=== PATIENT | male | born 1955 | race Caucasian/White ===

== ENCOUNTER 2022-07-19 10:27 | Outpatient (REF) | payer MEDICARE, OTHER, SELFPAY ==
--- NOTE | ~2022-07-19 | US_ITS ---
EXAMINATION: US COMPLETE ABDOMEN WITH LIVER ELASTOGRAPHY CLINICAL INFORMATION: COMPARISON: None. TECHNIQUE: Real-time imaging of the abdominal viscera. Noninvasive ultrasound liver fibrosis assessment is performed using Cassandra ElastPQ point quantification shear wave elastography (2D-SWE) with a C5-2 MHz transducer. Multiple elastography samples are obtained. FINDINGS: PANCREAS: Normal. ABDOMINAL AORTA: Not well visualized due to bowel gas. There is evidence of atherosclerotic disease. INFERIOR VENA CAVA: Visualized portions are normal. LIVER: Liver echotexture is slightly increased. Liver is normal in size and shape.. No focal lesion or intrahepatic biliary duct dilatation. The right lobe measures 17 cm in length. The left lobe measures 10.5 cm in length. Portal flow is normal/hepatopedal Shear wave liver elastography median stiffness is 1.5 m/s (reference: normal median stiffness is 1.3 m/s or less). IQR/median stiffness to assess sampling precision is 0.09 (reference: good quality data set is IQR/median stiffness of 0.15 or less). GALLBLADDER: There are gallstones. The gallbladder is normal in size. The gallbladder wall is normal. COMMON BILE DUCT: Normal in caliber measuring 0.5 cm in diameter. RIGHT KIDNEY: There are 3 small cysts, largest measuring 1 cm in the upper pole. No hydronephrosis. No renal calculi or focal parenchymal lesions. The kidney measures 11 cm in maximum dimension. LEFT KIDNEY: There are 3 small cysts, largest measuring 1.3 cm in the upper pole. No hydronephrosis. No renal calculi or focal parenchymal lesions. The kidney measures 11 cm in maximum dimension. SPLEEN: Normal. The spleen measures 12.5 cm in maximum dimension. FREE FLUID: None. US/US abdomen comp w elastography IMPRESSION: 1. Impression Slightly echogenic liver. Gallstones. Bilateral renal cysts. Atherosclerotic disease. 2. Liver elastography: Adequate liver sampling. In the absence of other known clinical signs, rules out compensated advanced chronic liver disease. REFERENCE: Society of Radiologists in Ultrasound Liver Stiffness Thresholds (2020): LIVER STIFFNESS THRESHOLDS: *Liver Stiffness equal or less than 1.3 m/s: High probability of being normal. *Liver Stiffness less than 1.7 m/s: In the absence of other known clinical signs, rules out compensated advanced chronic liver disease. *Liver Stiffness 1.7-2.1 m/s: Suggestive of compensated advanced chronic liver disease but need further test for confirmation. *Liver Stiffness over 2.1 m/s: Rules in compensated advanced chronic liver disease. *Liver Stiffness over 2.4 m/s: Suggestive of clinically significant portal hypertension. QUALITY OF DATA SET: *IQR/Median value equal or less than 0.15 implies a quality data set. *IQR/Median value over 0.15 implies a poor quality data set. SIGNIFICANT CHANGE FROM PRIOR EXAM: Significant change if liver stiffness measurement is 10% or greater from prior exam. OTHER CONSIDERATIONS: The stage of liver fibrosis may be overestimated in the setting of acute hepatitis, liver inflammation, elevated liver function tests, hepatic vascular congestion, obstructive cholestasis, non-fasting state, and infiltrative diseases such as amyloidosis and lymphoma. In some patients with NAFLD, the liver stiffness thresholds for compensated advanced chronic liver disease may be lower. In causes other than viral hepatitis and NAFLD, liver stiffness thresholds are not well established.
== END 2022-07-19 10:28 | disposition home or self-care (01) ==
LOC: HO.US 10:27
PROVIDERS: PCP Internal Medicine Geriatric Medicine; Visit Provider Internal Medicine Geriatric Medicine
DX: B18.2 Chronic viral hepatitis C (principal)
CPT/HCPCS: 76705; 76981

== ENCOUNTER 2023-05-07 09:50 | Outpatient (REF) | payer MEDICARE, OTHER, SELFPAY ==
[2023-05-07 12:12] LABS: Alanine Aminotransferase 8 U/L (0-40); Albumin Level 4.4 g/dL (3.5-5.0); Alkaline Phosphatase 80 U/L (39-117); Aspartate Amino Transferase 16 U/L (5-37); Bilirubin Direct 0.2 mg/dL (0.0-0.5); Bilirubin Total 0.8 mg/dL (0.0-1.0); Total Protein 7.5 g/dL (6.5-8.0)
[2023-05-09 12:19] LABS: HCV Log PCR <1.18 NOT DETECTED Log IU/mL (NOT DETECTED); HepC Viral Load <15 NOT DETECTED IU/mL (NOT DETECTED)
== END 2023-05-07 09:51 | disposition home or self-care (01) ==
LOC: HO.HHCL 09:50
PROVIDERS: PCP Internal Medicine Geriatric Medicine; Visit Provider Family Medicine
DX: B18.2 Chronic viral hepatitis C (principal)
CPT/HCPCS: 36415; 80076; 87522

== ENCOUNTER 2023-12-13 19:53 | Inpatient (IN) | payer MEDICARE, SELFPAY ==
--- NOTE | 2023-12-13 | ECG_ITS ---
Test Reason : CHEST PAIN Blood Pressure : / mmHG Vent. Rate : 100 BPM Atrial Rate : 100 BPM P-R Int : 160 ms QRS Dur : 094 ms QT Int : 362 ms P-R-T Axes : 079 029 076 degrees QTc Int : 466 ms Normal sinus rhythm Normal ECG When compared with ECG of 12-MAR-2013 00:33, No significant change was found Referred By: Generic ED Physician Electronically Signed By:CRISPIN MIGUEL
--- NOTE | ~2023-12-13 | CT_ITS ---
EXAMINATION: CT HEAD WITHOUT CONTRAST CLINICAL INFORMATION: Trauma. Head injury. COMPARISON: None available. TECHNIQUE: Contiguous axial imaging was performed from the skull base to vertex without intravenous administration of contrast. This CT examination was performed using dose optimization techniques as appropriate, variously including the following: *Automated exposure control *Adjustment of mA and/or kV according to patient size (this includes techniques or standardized protocols for targeted exams where dose is matched to indication/reason for exam; i.e. extremities or head) *Use of iterative reconstruction technique DLP: 766 mGy-cm FINDINGS: There is no evidence of an extra-axial collection. There is no evidence of intra or extra-axial hemorrhage. The ventricles and extra-axial CSF spaces are slightly prominent. There is nonspecific periventricular white matter disease. No mass, mass effect or infarct is seen. There is question of an ACOM aneurysm measuring 4 mm. This is probably similar to previous brain MRI from 2012 and 2013. Review of bone windows is normal. No skull fracture. Right-sided barbara bullosa. Inflammatory change in the left ethmoid and frontal and sphenoid sinuses. CT/CT head/brain wo IV con IMPRESSION: No acute findings. Mild generalized atrophy and nonspecific periventricular white matter disease. Question 4 mm ACOM aneurysm. Follow-up elective CTA recommended. Mild sinus disease.
--- NOTE | ~2023-12-13 | XR_ITS ---
EXAMINATION: PORTABLE CHEST 1 VIEW CLINICAL INFORMATION: low O2sats after overdose. COMPARISON: No recent pertinent prior studies are available for comparison. TECHNIQUE: Portable frontal view of the chest was obtained. FINDINGS: The lungs are well expanded. No focal infiltrate, effusion, edema, or pneumothorax. Cardiac and mediastinal silhouettes are within normal limits for size with vascular calcification in aorta. Degenerative changes in the spine and shoulders. No acute bony abnormality seen. XR/XR chest 1V IMPRESSION: No evidence of acute disease.
--- NOTE | ~2023-12-13 | CT_ITS ---
EXAMINATION: CT ANGIOGRAM OF THE CHEST WITH AND WITHOUT CONTRAST (CT PULMONARY ANGIOGRAM FOR PE) CLINICAL INFORMATION: Reason for Exam pleuritic pain, low O2 sats, elevated D-dimer COMPARISON: None available. TECHNIQUE: Prior to contrast administration, noncontrast localization images were obtained. Subsequently, multidetector volumetric imaging was performed from the thoracic inlet to below the diaphragms following the administration of 65 mL Omnipaque 350 intravenous contrast. No contrast reaction reported Sagittal, coronal, and MIP oblique sagittal reformatted images were obtained on the CT workstation, uploaded to PACS, and reviewed. This CT examination was performed using dose optimization techniques as appropriate, variously including the following: *Automated exposure control *Adjustment of mA and/or kV according to patient size (this includes techniques or standardized protocols for targeted exams where dose is matched to indication/reason for exam; i.e. extremities or head) *Use of iterative reconstruction technique Total exam dose-length product 315 mGy-cm FINDINGS: QUALITY OF STUDY/CONTRAST BOLUS: Satisfactory. PULMONARY ARTERIES: There are 2 small eccentric filling defects in the lateral subsegmental right middle lobe vasculature, suspicious small pulmonary emboli on images [id number]. THORACIC AORTA: Prominent ascending aorta to approximately 4.0 cm. There is atherosclerotic calcification along the aorta. LUNG: Mild interlobular septal thickening towards the lung apices as well as mild groundglass/hazy parenchymal opacity towards the dependent portions of both lungs, suggesting mild pulmonary edema. Subsegmental atelectasis in the basilar lower lobes. PLEURA: No pleural effusion or pneumothorax. MEDIASTINUM: The visualized thyroid gland is unremarkable. There are subcentimeter mediastinal lymph nodes within the range of normal variation. Cardiac size is within normal limits; no pericardial effusion. No evidence of septal bowing or right heart strain. CORONARY ARTERY CALCIFICATION: Present CHEST WALL/AXILLA: No axillary or internal mammary lymphadenopathy. OSSEOUS STRUCTURES: Multilevel degenerative endplate changes in the spine. UPPER ABDOMEN: Small bilateral hypoattenuating renal foci favor cysts; no follow-up recommended. No reflux of contrast into the hepatic veins to suggest elevated right heart pressures. CT/CT angio chest PE protocol IMPRESSION: 1. Two small eccentric filling defects in the lateral subsegmental right middle lobe vasculature, suspicious for small pulmonary emboli. 2. Mild pulmonary edema. 3. Prominent ascending aorta measuring approximately 4.0 in diameter. 4. Coronary artery calcifications. Correlation with cardiac risk factors is recommended. VTE: positive. This critical result was discussed with Dr. Tan on 12/14/2023 1:55 AM, and it was ascertained that the content and urgency of the report was understood at the time of direct communication.
[2023-12-13 20:02] VITALS: BP 127/61; BP 134/70; PULSE 104; PULSE 110; RESP 18; TEMP 36.6; O2SAT 89; O2SAT 94; BMI 23.3
[2023-12-13 20:11] VITALS: BP 127/71; PULSE 100; RESP 18; TEMP 36.6; O2SAT 95
--- NOTE | 2023-12-13 20:18 | PC.NURSE ---
Pt presents to ED via EMS. EMS reports friend called after pt became unresponsive after smoking heroin. Pt fell to floor and hit his head per friend. Fire gave 12 mg of narcan IN and ventilated with BVM due to being unresponsive and apneic. Pt became alert and oriented for EMS, EMS placed pt in c-collar due to fall and bruising on left side of face. IV placed in right AC 18G by EMS. EMS also placed pt on 2 L O2 via NC due to sats being in the 80s.
--- NOTE | 2023-12-13 20:20 | PC.NURSE ---
Pt is alert and oriented, breathing even and unlabored, skin dry and warm. Pt reports pain across his chest when he breathes, sharp, 7/10. Pt denies any SOB , but noted to be 88% on RA, pt placed on 2L O2 NC and improves quickly to 95%. VSS, pt placed on bedside monitor technician. C-collar in place. Pt does have one episode of vomiting.
--- NOTE | 2023-12-13 21:12 | ECG_ITS ---
Test Reason : RISING TROP Blood Pressure : / mmHG Vent. Rate : 077 BPM Atrial Rate : 077 BPM P-R Int : 148 ms QRS Dur : 084 ms QT Int : 372 ms P-R-T Axes : 077 006 053 degrees QTc Int : 420 ms Normal sinus rhythm with sinus arrhythmia Normal ECG When compared with ECG of 13-DEC-2023 20:33, QT has shortened Referred By: Dwight Alfaro Electronically Signed By:CRISPIN MIGUEL
[2023-12-13 21:38] LABS: MANUAL DIFF FLAG NO
[2023-12-13 21:41] LABS: Basophils Absolute Auto 0.1 X10*3/uL (0.0-0.2); Basophils Percent Auto 0.4 % (0-2); Eosinophils Absolute Auto 0.2 X10*3/uL (0.0-0.4); Imm Gran Abs Auto 0.07 X10*3/uL (0.00-0.03); Imm Gran Pct Auto 0.4 % (0.0-0.4); Lymphocytes Absolute Auto 0.8 X10*3/uL (1.2-4.9); Lymphocytes Percent Auto 4.7 % (20-40); Mean Corpuscular HGB Conc 34.9 g/dl (31.0-36.0); Mean Corpuscular Hemoglobin 33.1 pg (27.0-33.0); Mean Corpuscular Volume 94.9 fL (80.0-98.0); Mean Platelet Volume 9.2 fL (9.4-12.4); Monocytes Absolute Auto 0.8 X10*3/uL (0.1-1.2); Monocytes Percent Auto 4.4 % (2-11); Neutrophils Absolute Auto 15.3 x10*3/uL (2.0-8.3); Neutrophils Percent Auto 89.1 % (45-73); Platelet Count 224 X10*3/uL (160-400); Red Blood Count 4.53 X10*6/uL (4.60-5.80); Red Cell Distribution Width 12.7 % (11.0-16.0); White Blood Count 17.2 X10*3/uL (4.8-10.8)
[2023-12-13 21:42] LABS: VBG Base Excess 2.3 mmol/L; VBG HCO3 27 mmol/L (22-26); VBG pCO2 45 mmHg; VBG pH 7.39 (7.32-7.43); VBG pO2 48 mmHg
[2023-12-13 21:42] LABS: Venous Blood Gas Refer to POC result
[2023-12-13 21:50] LABS: INTERNATIONAL NORM RATIO 0.9 (0.9-1.1); Prothrombin Time 11.1 SEC (11.1-13.3)
[2023-12-13 21:57] LABS: Alanine Aminotransferase 16 U/L (0-40); Albumin Level 4.1 g/dL (3.5-5.0); Alkaline Phosphatase 77 U/L (39-117); Anion Gap 9 (12-20); Aspartate Amino Transferase 24 U/L (5-37); Bilirubin Direct 0.2 mg/dL (0.0-0.5); Bilirubin Total 0.4 mg/dL (0.0-1.0); Blood Urea Nitrogen 21 mg/dL (9-16); Calcium 9.3 mg/dL (8.4-10.2); Carbon Dioxide 30 mmol/L (22-29); Chloride 108 mmol/L (96-108); Creatinine Clr Calc Pharmacy 78.1; Estimated Glomerular Filt Rate > 60; Ethanol < 10 mg/dL; Glucose Random 113 mg/dL (60-115); Lipase 28 U/L (8-78); Magnesium 2.2 mg/dL (1.6-2.6); Potassium 4.3 mmol/L (3.3-5.1); Sodium 143 mmol/L (135-145); Total Protein 6.9 g/dL (6.5-8.0)
[2023-12-13 22:02] LABS: Troponin-I High Sensitivity 19.4 ng/L (<3.5-35.0)
--- NOTE | 2023-12-13 22:40 | ED.GENADULT ---
HPI - General Adult General Chief complaint: Overdose Stated complaint: overdosed, head strike, 12 mg given, per ems Time Seen by Provider: 12/13/23 20:33 History of Present Illness HPI narrative: The patient is an ordinarily healthy 68-year-old who says that he was helping his partner, who has cancer, control her pain by lighting up a heroin pipe tonight. He apparently that up the heroin pipe and inhaled a few times and then does not remember what happened next. Apparently he passed out and fell and hit the floor. Apparently the patient was unresponsive. 911 was called. Paramedics administered 12 mg of naloxone and ventilated the patient with a bag-valve mask. I believe he also received some chest compressions. He woke up after the naloxone. He denies any headache. He may have some slight left-sided facial discomfort. He denies any neck pain or pain with moving his neck. He says he has never used heroin before. Related Data Allergies Allergy/AdvReac Type Severity Reaction Status Date / Time No Known Allergies Allergy Unverified 12/13/23 20:06 Review of Systems Review of Systems: Yes all other systems are reviewed and are negative [facility] Social History Social History Smoked in Last 30 Days: Yes Use of substances other than those prescribed or required for medical reasons: Yes Substance Use Type: Heroin Substance Use Frequency: Daily Advance Directives: No Advance Directives Information Provided: No Physical Exam ED Vital Signs: Vital Signs - 24 hr 12/13/23 20:02 12/13/23 20:11 12/13/23 23:41 Temperature 97.8 F 97.8 F Pulse Rate 104 H 100 85 Pulse Rate [Monitor] Respiratory Rate 18 18 16 Blood Pressure 127/61 127/71 Pulse Oximetry 89 L 95 Oxygen Delivery Method Room Air Nasal Cannula Oxygen Flow Rate 2 12/13/23 23:54 12/14/23 00:00 12/14/23 03:13 Temperature 98.3 F 97.8 F Pulse Rate 84 91 Pulse Rate [Monitor] 62 Respiratory Rate 20 12 Blood Pressure 127/62 112/64 Pulse Oximetry 93 92 Oxygen Delivery Method Room Air Nasal Cannula Oxygen Flow Rate 2 BMI result Body Mass Index 23.3 Const Other: The patient is a slim 68-year-old who looks fairly useful for his age. He does not appear in acute distress although he is some ecchymotic discoloration to the left side of his face without significant associated soft tissue swelling HENMT Other: There are ecchymotic skin changes to the left side of the face. This is not associated with any significant soft tissue swelling. He is good excursion of his jaw. No raccoon eyes. No henson sign. Eyes Other: Pupils are round equal, conjunctivae clear, extraocular movements intact Neck Other: No posterior midline C-spine tenderness. He is moving his neck easily without discomfort. His C-spine is clinically clear. Resp Other: The patient had low oxygen saturations and has been placed on nasal cannula. On nasal cannula he did not show any increased work of breathing. Breath sounds are clear bilaterally. Cardio Rate: tachycardic Rhythm: regular rhythm Heart sounds: S1 normal heart sound present and S2 normal heart sound present GI Other: Abdomen is soft and nontender Skin Other: There are some ecchymotic skin changes to the patient's left cheek without soft tissue swelling. Otherwise the skin is unremarkable Neuro Other: The patient is awake and alert and oriented. Mental status seems clear. Cranial nerves are intact. He moves his extremities symmetrically. He seems grossly neurologically intact. Extrem Other: No injuries to the extremities Medications Administered Discontinued Medications Generic Name Dose Route Start Last Admin Trade Name Freq PRN Reason Stop Dose Admin Albuterol/Ipratropium 3 ml 12/13/23 22:43 12/13/23 23:41 Albuterol/Iprat 2.5/0.5mg 3 Ml Ampul.Neb INHALE 12/13/23 22:44 3 ml ONCE ONE Administration Iohexol 65 ml 12/14/23 01:30 12/14/23 01:31 Iohexol 350 Mg/Ml 100 Ml Infus..Btl IV 12/14/23 01:31 65 ml ONCE ONE Administration Medical Decision Making Medical Decision Making MDM Narrative: The patient is a 68-year-old male who apparently passed out after smoking heroin. Apparently he received some chest compressions and bag-valve mask ventilation as well as 12 mg of naloxone. The patient denies being a regular heroin user. In fact he says he is never used before. He admits to being a half a pack a day smoker. In the emergency room the patient's presentation was most significant for an oxygen requirement. His oxygen saturation on room air was in the mid 80s. However he did well on 2 L nasal cannula. The patient's chest x-ray was read as negative. He had a mildly rising troponin level. He had 2 EKGs that are normal. He has not describing symptoms that make me think he is having an ongoing acute coronary syndrome. A D-dimer was done that was very elevated and so we did a CT pulmonary angiogram. The CT pulmonary angiogram shows 2 small filling defects suspicious for pulmonary emboli but more importantly I think shows findings of pulmonary edema that I suspect is non cardiogenic pulmonary edema as a result of his overdose. Given the presence of noncardiogenic pulmonary edema and given an ongoing oxygen requirement and given a rising troponin level I think hospitalization would be reasonable. His CT pulmonary angiogram has been read as showing 2 small pulmonary emboli. The clinical significance of this finding is uncertain. Nevertheless the patient will be given a dose of enoxaparin in the emergency room. Lab Data 12/13/23 21:31 12/13/23 21:31 Labs: Lab Results 12/13/23 12/13/23 12/13/23 Range/Units 21:31 21:37 23:28 WBC 17.2 H (4.8-10.8) X10*3/uL RBC 4.53 L (4.60-5.80) X10*6/uL Hgb 15.0 (14.0-18.0) g/dl Hct 43.0 (42.0-52.0) % MCV 94.9 (80.0-98.0) fL MCH 33.1 H (27.0-33.0) pg MCHC 34.9 (31.0-36.0) g/dl RDW 12.7 (11.0-16.0) % Plt Count 224 (160-400) X10*3/uL MPV 9.2 L (9.4-12.4) fL Immature Gran % (Auto) 0.4 (0.0-0.4) % Neut % (Auto) 89.1 H (45-73) % Lymph % (Auto) 4.7 L (20-40) % [place] % (Auto) 4.4 (2-11) % Eos % (Auto) 1.0 (0-4) % Baso % (Auto) 0.4 (0-2) % Lymph # (Auto) 0.8 L (1.2-4.9) X10*3/uL [place] # (Auto) 0.8 (0.1-1.2) X10*3/uL Eos # (Auto) 0.2 (0.0-0.4) X10*3/uL Baso # (Auto) 0.1 (0.0-0.2) X10*3/uL Abs Immat Gran (auto) 0.07 H (0.00-0.03) X10*3/uL Absolute Neuts (auto) 15.3 H (2.0-8.3) x10*3/uL Absolute Nucleated RBC 0.000 (0.0-0.012) X10*3/uL Nucleated RBC % (auto) 0.0 (0.0-0.2) /100WBC PT 11.1 (11.1-13.3) SEC INR 0.9 (0.9-1.1) D-Dimer High Sensitivty 4531 NG/ML VBG pH 7.39 (7.32-7.43) VBG pCO2 45 mmHg VBG pO2 48 mmHg VBG HCO3 27 H (22-26) mmol/L VBG O2 Saturation 79.0 % VBG Base Excess 2.3 mmol/L Sodium 143 (135-145) mmol/L Potassium 4.3 (3.3-5.1) mmol/L Chloride 108 (96-108) mmol/L Carbon Dioxide 30 H (22-29) mmol/L Anion Gap 9 L (12-20) BUN 21 H (9-16) mg/dL Creatinine 0.95 (0.5-1.4) mg/dL Estim Creat Clear Calc 78.1 Estimated GFR > 60 Random Glucose 113 (60-115) mg/dL Calcium 9.3 (8.4-10.2) mg/dL Magnesium 2.2 (1.6-2.6) mg/dL Total Bilirubin 0.4 (0.0-1.0) mg/dL Direct Bilirubin 0.2 (0.0-0.5) mg/dL AST 24 (5-37) U/L ALT 16 (0-40) U/L Alkaline Phosphatase 77 (39-117) U/L Troponin I High Sens 19.4 (<3.5-35.0) ng/L B-Natriuretic Peptide (<100) pg/mL Total Protein 6.9 (6.5-8.0) g/dL Albumin 4.1 (3.5-5.0) g/dL Lipase 28 (8-78) U/L Urine Color Yellow Urine Appearance Clear Urine pH 5.5 (5.0-9.0) Ur Specific [place] 1.020 (1.005-1.025) Urine Protein 30 (1+) H (Neg-Trace) mg/dL Urine Glucose (UA) Negative (Negative) mg/dL Urine Ketones Trace (Negative) mg/dL Urine Blood Negative (Negative) Urine Nitrite Negative (Negative) Ur Leukocyte Esterase Negative (Negative) Urine RBC 0-2 (0-2) /HPF Urine WBC 0-5 (0-5) /HPF Ur Squamous Epith Cells 0-2 (0-2) /HPF Urine Bacteria None Seen (None Seen) Hyaline Casts 0-2 (0-2) /LPF Urine Opiates Screen POSITIVE H (Not Detect) Ur Buprenorphine Scrn Not Detected (Not Detect) ng/mL Ur Oxycodone Screen Not Detected (Not Detect) ng/mL Urine Methadone Screen Not Detected (Not Detect) ng/mL Urine Fentanyl Screen POSITIVE H (Not Detect) Ur Barbiturates Screen Not Detected (Not Detect) Ur Phencyclidine Scrn Not Detected (Not Detect) Ur Amphetamines Screen Not Detected (Not Detect) U Benzodiazepines Scrn Not Detected (Not Detect) Urine Cocaine Screen POSITIVE H (Not Detect) U Marijuana (THC) Screen Not Detected (Not Detect) Ethyl Alcohol < 10 mg/dL 12/13/23 12/14/23 Range/Units 23:40 02:03 WBC (4.8-10.8) X10*3/uL RBC (4.60-5.80) X10*6/uL Hgb (14.0-18.0) g/dl Hct (42.0-52.0) % MCV (80.0-98.0) fL MCH (27.0-33.0) pg MCHC (31.0-36.0) g/dl RDW (11.0-16.0) % Plt Count (160-400) X10*3/uL MPV (9.4-12.4) fL Immature Gran % (Auto) (0.0-0.4) % Neut % (Auto) (45-73) % Lymph % (Auto) (20-40) % [place] % (Auto) (2-11) % Eos % (Auto) (0-4) % Baso % (Auto) (0-2) % Lymph # (Auto) (1.2-4.9) X10*3/uL [place] # (Auto) (0.1-1.2) X10*3/uL Eos # (Auto) (0.0-0.4) X10*3/uL Baso # (Auto) (0.0-0.2) X10*3/uL Abs Immat Gran (auto) (0.00-0.03) X10*3/uL Absolute Neuts (auto) (2.0-8.3) x10*3/uL Absolute Nucleated RBC (0.0-0.012) X10*3/uL Nucleated RBC % (auto) (0.0-0.2) /100WBC PT (11.1-13.3) SEC INR (0.9-1.1) D-Dimer High Sensitivty NG/ML VBG pH (7.32-7.43) VBG pCO2 mmHg VBG pO2 mmHg VBG HCO3 (22-26) mmol/L VBG O2 Saturation % VBG Base Excess mmol/L Sodium (135-145) mmol/L Potassium (3.3-5.1) mmol/L Chloride (96-108) mmol/L Carbon Dioxide (22-29) mmol/L Anion Gap (12-20) BUN (9-16) mg/dL Creatinine (0.5-1.4) mg/dL Estim Creat Clear Calc Estimated GFR Random Glucose (60-115) mg/dL Calcium (8.4-10.2) mg/dL Magnesium (1.6-2.6) mg/dL Total Bilirubin (0.0-1.0) mg/dL Direct Bilirubin (0.0-0.5) mg/dL AST (5-37) U/L ALT (0-40) U/L Alkaline Phosphatase (39-117) U/L Troponin I High Sens 49.4 H D 76.9 H D (<3.5-35.0) ng/L B-Natriuretic Peptide 16 (<100) pg/mL Total Protein (6.5-8.0) g/dL Albumin (3.5-5.0) g/dL Lipase (8-78) U/L Urine Color Urine Appearance Urine pH (5.0-9.0) Ur Specific [place] (1.005-1.025) Urine Protein (Neg-Trace) mg/dL Urine Glucose (UA) (Negative) mg/dL Urine Ketones (Negative) mg/dL Urine Blood (Negative) Urine Nitrite (Negative) Ur Leukocyte Esterase (Negative) Urine RBC (0-2) /HPF Urine WBC (0-5) /HPF Ur Squamous Epith Cells (0-2) /HPF Urine Bacteria (None Seen) Hyaline Casts (0-2) /LPF Urine Opiates Screen (Not Detect) Ur Buprenorphine Scrn (Not Detect) ng/mL Ur Oxycodone Screen (Not Detect) ng/mL Urine Methadone Screen (Not Detect) ng/mL Urine Fentanyl Screen (Not Detect) Ur Barbiturates Screen (Not Detect) Ur Phencyclidine Scrn (Not Detect) Ur Amphetamines Screen (Not Detect) U Benzodiazepines Scrn (Not Detect) Urine Cocaine Screen (Not Detect) U Marijuana (THC) Screen (Not Detect) Ethyl Alcohol mg/dL Critical Care Time Critical Care Time Critical Care Time: Yes Total Critical Care Time: 45 Attestation: The patient was critically ill with a high probability of imminent or life-threatening deterioration. ?I spent greater than 30 minutes of discontinuous time evaluating the patient, delivering critical care at the bedside, discussing evaluating data with consultants. ?Critical care time does not include time spent performing separately billable procedures or teaching. ?Time spent performing critical care with 45 minutes. Discharge Plan Discharge Clinical Impression: Acute non-cardiogenic pulmonary edema, Elevated troponin, Accidental drug overdose Patient Disposition: Admitted As Inpatient Print Language: [place]
[2023-12-13 23:38] LABS: Appearance Urine Clear; Color Urine Yellow; Glucose Urine UA Negative (Negative); Leukocyte Esterase Urine Negative (Negative); Nitrite Urine Negative (Negative); PH 5.5 (5.0-9.0); UMIC TRIGGER UACC YES; Urine Blood Negative (Negative); Urine Ketones Trace mg/dL (Negative); Urine Protein 30 (1+) mg/dL (Neg-Trace)
[2023-12-13 23:41] VITALS: PULSE 85; RESP 16; O2SAT 95
[2023-12-13] MEDS: Albuterol/Iprat 2.5/0.5MG 3 ML AMPUL.NEB INHALE (23:41)
[2023-12-13 23:45] LABS: Amphetamine Screen Urine Not Detected (Not Detect); Barbiturates, Urine Not Detected (Not Detect); Benzodiazepines Screen Urine Not Detected (Not Detect); Buprenorphine Scr Not Detected (Not Detect); Cannabinoid Screen Urine Not Detected (Not Detect); Cocaine Screen Urine POSITIVE (Not Detect); Fentanyl, urine POSITIVE (Not Detect); Methadone Screen, Urine Not Detected (Not Detect); Opiate Screen Urine POSITIVE (Not Detect); Oxycodone Screen Urine Not Detected (Not Detect); Phencyclidine Screen Urine Not Detected (Not Detect)
[2023-12-13 23:48] LABS: Bacteria Urine None Seen (None Seen); Hyaline Casts Urine 0-2 /LPF (0-2); RBC Urine 0-2 /HPF (0-2); Squamous Epithelial Cell Urine 0-2 /HPF (0-2); WBC Urine 0-5 /HPF (0-5)
[2023-12-13 23:54] VITALS: BP 127/62; PULSE 84; RESP 20; TEMP 36.8; O2SAT 93
[2023-12-14] VITALS (9 sets, daily range): BP systolic 107–125; BP diastolic 47–70; PULSE 62–97; RESP 12–18; TEMP 36.2–37.1; O2SAT 2–95
[2023-12-14 00:08] LABS: B Type Natriuretic Peptide 16 pg/mL (<100); Troponin-I High Sensitivity 49.4 ng/L (<3.5-35.0)
[2023-12-14 00:30] LABS: D Dimer High Sensitivity 4531 NG/ML
[2023-12-14] MEDS: iohexoL 350 MG/ML 100 ML INFUS..BTL 65 ML IV (01:31)
[2023-12-14 02:27] LABS: Troponin-I High Sensitivity 76.9 ng/L (<3.5-35.0)
[2023-12-14] MEDS: Enoxaparin Sodium 80 MG/0.8 ML SYRINGE SUBCUT ×2 (03:58→15:57)
--- NOTE | 2023-12-14 04:24 | MHC.EDTECH ---
Addendum entered by Naa Mcnamara, [facility] 12/14/23 06:29: Samantha Murillo, RN aware as well. Original Note: Went over belongings with Pt, who states he has a tshirt, pants, shoes and a sweatshirt , however items not at bedside/in room. This tech checked with security who checked decon, no belongings there. Pod was also checked. Made primary RN (Jennifer) and hardwood floor refinisher (Barbara) aware that no belongings at bedside even though Pt states he had clothing upon arrival. Nothing noted in chart.
--- NOTE | 2023-12-14 09:10 | PM.IMHP ---
History of Present Illness Date of Service: 12/14/23 Chief Complaint: accidental overdose The patient is a 68 year old current smoker who endorses no chronic medical history and presented to the ED late evening 12/12 after an accidental heroin overdose. The patient states that his significant other is currently under hospice services for terminal cancer. He states that her father has travelled from [place] to help. On the evening prior to admission, the patient reproted that he smoked heroin with the intention of shotgunning it to his partner (describes it as him inhaling the smoke and exhaling it onto/near his partner). He reports the next thing he recalls is being moved on to the stretcher by the paramedics. He denies being an opiate user. Per the ED provider notes: he patient is an ordinarily healthy 68-year-old who says that he was helping his partner, who has cancer, control her pain by lighting up a heroin pipe tonight. He apparently that up the heroin pipe and inhaled a few times and then does not remember what happened next. Apparently he passed out and fell and hit the floor. Apparently the patient was unresponsive. 911 was called. Paramedics administered 12 mg of naloxone and ventilated the patient with a bag-valve mask. I believe he also received some chest compressions. He woke up after the naloxone. The patient is seen an examined in the ED around 840AM. He currently reports feeling much better. States he has some chest soreness, but denies anginal type chest pain. Denies sob or cough. In the ED, his work up revealed UDS positive for fentanyl, opiates and cocaine. His HS trop I have increased from 19 to 49 to 76. His bnp wnl. His imaging studies show 2 small subsegmental PE and mild pulmonary edema. He has been given lovenox 1mg/kg and remains hypoxic below 88-90% and hence will be admitted for further care. Review of Systems Review of Systems: Negative except HPI/interval history. PMFSH Cognitive capacity: Denies Pertinent family history: Denies Surgical History (Updated 12/14/23 @ 09:17 by Roque Carlson MD) History of appendectomy Social History Smoked in Last 30 Days: Yes Use of substances other than those prescribed or required for medical reasons: Yes Substance Use Type: Heroin Substance Use Frequency: Daily Advance Directives: No Advance Directives Information Provided: No Meds Allergies Allergy/AdvReac Type Severity Reaction Status Date / Time No Known Allergies Allergy Unverified 12/13/23 20:06 Active Medications: Current Medications Sodium Chloride (0.9 % Sodium Chloride Flush 3 Ml Syringe) 3 ml IVFLUSH QSHIFT MARTHA Physical Exam Vital Signs and Narrative: Vital Signs: Last Vital Signs Temp 98.1 F 12/14/23 05:57 Pulse 73 12/14/23 08:08 Resp 12 12/14/23 08:08 BP 107/70 12/14/23 08:08 Pulse Ox 92 12/14/23 05:57 O2 Del Method Nasal Cannula 12/14/23 05:57 O2 Flow Rate 2 12/14/23 05:57 BMI result Body Mass Index 23.3 Const: Other: Constitutional - Awake and Alert, No apparent distress while on supplemental oxygen Eyes - PERRLA, EOMI Cardiovascular - S1S2, RRR, No edema Respiratory - diminished sounds, breathing comfortably while on supplemental oxygen; desaturates with increased RR without O2 Gastrointestinal - NT / ND; +BS; No rebound or guarding - No CVA tenderness Extremities - no calf tenderness bilaterally, no swelling Musculoskeletal - Normal inspection, normal ROM Skin - Warm/Dry Neurological - Alert & oriented x3, No focal deficit Psychological - Appropriate affect Results Labs 12/13/23 21:31 12/13/23 21:31 Labs: Laboratory Results - last 24 hr 12/13/23 12/13/23 12/13/23 21:31 21:37 23:28 MCV 94.9 MCH 33.1 H MCHC 34.9 RDW 12.7 Plt Count 224 MPV 9.2 L Immature Gran % (Auto) 0.4 Neut % (Auto) 89.1 H Lymph % (Auto) 4.7 L Schleicher % (Auto) 4.4 Eos % (Auto) 1.0 Baso % (Auto) 0.4 Lymph # (Auto) 0.8 L Schleicher # (Auto) 0.8 Eos # (Auto) 0.2 Baso # (Auto) 0.1 Abs Immat Gran (auto) 0.07 H Absolute Neuts (auto) 15.3 H Absolute Nucleated RBC 0.000 Nucleated RBC % (auto) 0.0 PT 11.1 INR 0.9 D-Dimer High Sensitivty 4531 VBG pH 7.39 VBG pCO2 45 VBG pO2 48 VBG HCO3 27 H VBG O2 Saturation 79.0 VBG Base Excess 2.3 Anion Gap 9 L Estim Creat Clear Calc 78.1 Estimated GFR > 60 Random Glucose 113 Calcium 9.3 Magnesium 2.2 Total Bilirubin 0.4 Direct Bilirubin 0.2 AST 24 ALT 16 Alkaline Phosphatase 77 Troponin I High Sens 19.4 B-Natriuretic Peptide Total Protein 6.9 Albumin 4.1 Lipase 28 Urine Color Yellow Urine Appearance Clear Urine pH 5.5 Ur Specific [place] 1.020 Urine Protein 30 (1+) H Urine Glucose (UA) Negative Urine Ketones Trace Urine Blood Negative Urine Nitrite Negative Ur Leukocyte Esterase Negative Urine RBC 0-2 Urine WBC 0-5 Ur Squamous Epith Cells 0-2 Urine Bacteria None Seen Hyaline Casts 0-2 Urine Opiates Screen POSITIVE H Ur Buprenorphine Scrn Not Detected Ur Oxycodone Screen Not Detected Urine Methadone Screen Not Detected Urine Fentanyl Screen POSITIVE H Ur Barbiturates Screen Not Detected Ur Phencyclidine Scrn Not Detected Ur Amphetamines Screen Not Detected U Benzodiazepines Scrn Not Detected Urine Cocaine Screen POSITIVE H U Marijuana (THC) Screen Not Detected Ethyl Alcohol < 10 12/13/23 12/14/23 23:40 02:03 MCV MCH MCHC RDW Plt Count MPV Immature Gran % (Auto) Neut % (Auto) Lymph % (Auto) Schleicher % (Auto) Eos % (Auto) Baso % (Auto) Lymph # (Auto) Schleicher # (Auto) Eos # (Auto) Baso # (Auto) Abs Immat Gran (auto) Absolute Neuts (auto) Absolute Nucleated RBC Nucleated RBC % (auto) PT INR D-Dimer High Sensitivty VBG pH VBG pCO2 VBG pO2 VBG HCO3 VBG O2 Saturation VBG Base Excess Anion Gap Estim Creat Clear Calc Estimated GFR Random Glucose Calcium Magnesium Total Bilirubin Direct Bilirubin AST ALT Alkaline Phosphatase Troponin I High Sens 49.4 H D 76.9 H D B-Natriuretic Peptide 16 Total Protein Albumin Lipase Urine Color Urine Appearance Urine pH Ur Specific [place] Urine Protein Urine Glucose (UA) Urine Ketones Urine Blood Urine Nitrite Ur Leukocyte Esterase Urine RBC Urine WBC Ur Squamous Epith Cells Urine Bacteria Hyaline Casts Urine Opiates Screen Ur Buprenorphine Scrn Ur Oxycodone Screen Urine Methadone Screen Urine Fentanyl Screen Ur Barbiturates Screen Ur Phencyclidine Scrn Ur Amphetamines Screen U Benzodiazepines Scrn Urine Cocaine Screen U Marijuana (THC) Screen Ethyl Alcohol Imaging Radiologist's Impressions: Impressions Chest X-Ray 12/13/23 21:30 IMPRESSION: No evidence of acute disease. Head CT 12/13/23 21:45 IMPRESSION: No acute findings. Mild generalized atrophy and nonspecific periventricular white matter disease. Question 4 mm ACOM aneurysm. Follow-up elective CTA recommended. Mild sinus disease. Chest CTA 12/14/23 01:31 IMPRESSION: 1. Two small eccentric filling defects in the lateral subsegmental right middle lobe vasculature, suspicious for small pulmonary emboli. 2. Mild pulmonary edema. 3. Prominent ascending aorta measuring approximately 4.0 in diameter. 4. Coronary artery calcifications. Correlation with cardiac risk factors is recommended. VTE: positive. This critical result was discussed with Dr. Tan on 12/14/2023 1:55 AM, and it was ascertained that the content and urgency of the report was understood at the time of direct communication. Assessment and Plan (1) Accidental drug overdose: Status: Acute (2) Acute non-cardiogenic pulmonary edema: Status: Acute Plan 68 yo M who presented to the ED after what appears to be an accidental overdose. He noted to be hypoxic, likely secondary to non-cardiogenic pulmonary edema from this overdose. However, he has an incidental finding of 2 small subsegmental PE. He will be admitted for further treatment. 1. Acute respiratory failure with hypoxia due to non-cardiogenic pulmonary edema from opiate overdose currently saturating >92 on 2-3L will wean as tolerated d/w him the importance of illicit substance avoidance 2. Pulmonary embolism 2 small subsegmental per CTA reports doubtful that this is the cause of his hypoxia, nontheless, initiated on lovenox 1mg/kg and will continue likely d/c on OAC 3. Demand ischemia HS trop trending upwards will repeat and if continues to climb, will check echo and involve cardiology suspected likely related to #1 pt without EKG changes and anginal chest pain 4. Leukocytosis likely reactive, no evidence of infection observe Full Code DVT pptx -- will be on treatment dose lovenox or OAC Pt with acute hypoxic resp failure in conjunction with PE and demand ischemia which will require further work up and mgmt therefore, hospitalization expected to span 2 midnights and hence, he will be admitted as inpatient. Quality Stroke Does the patient have a stroke diagnosis?: No VTE Prior VTE?: No VTE Risk Level:: Medical - moderate - high VTE Device Contraindication: N/A - Device Ordered VTE Drug Contraindication: N/A - Med Ordered
[2023-12-14] MEDS: 0.9 % Sodium Chloride Flush 3 ML SYRINGE IVFLUSH (15:57)
--- NOTE | 2023-12-14 21:29 | PC.NURSE ---
Late entry; assumed care of pt at 19:00. PT irate and agitated re: not wanting to be here and being told he has a room and then being told he doesn't have a room. PT reassured he is receiving the same care whether upstairs or here. VSS @ this time. Plan of care onging. Call estrada placed within reach.
[2023-12-15 00:49] VITALS: BP 116/58; PULSE 69; RESP 17; O2SAT 93
--- NOTE | 2023-12-15 02:13 | PC.NURSE ---
Late entry; pt maintaining O2 sats at or above 94% for several hours and was titrated off of O2.
[2023-12-15] MEDS: Enoxaparin Sodium 80 MG/0.8 ML SYRINGE SUBCUT (02:53)
[2023-12-15 02:59] VITALS: BMI 21.8
[2023-12-15 03:06] VITALS: BP 151/65; PULSE 84; RESP 16; TEMP 36.1; O2SAT 90
--- NOTE | 2023-12-15 03:30 | PC.NURSE ---
Cell phone found under pt's pillow after pt was transferred to [facility] floor. Consulted with charge nurse Eliz and decision was made to send cell phone to [facility] where pts others belongings are being held due to heroin overdose. PT can consult with management tomorrow morning regarding belongings. Per hospital protocol, all belongings on pt when he came in should be in [facility].
[2023-12-15 04:00] VITALS: BP 112/52; PULSE 71; RESP 16; TEMP 36.9; O2SAT 96
[2023-12-15 06:59] LABS: Hematocrit 41.1 % (42.0-52.0); Hemoglobin 13.9 g/dl (14.0-18.0); Mean Corpuscular HGB Conc 33.8 g/dl (31.0-36.0); Mean Corpuscular Hemoglobin 32.9 pg (27.0-33.0); Mean Corpuscular Volume 97.2 fL (80.0-98.0); Mean Platelet Volume 9.4 fL (9.4-12.4); Platelet Count 211 X10*3/uL (160-400); Red Blood Count 4.23 X10*6/uL (4.60-5.80); Red Cell Distribution Width 12.8 % (11.0-16.0); White Blood Count 9.8 X10*3/uL (4.8-10.8)
--- NOTE | 2023-12-15 07:05 | PHA.MEDREC ---
Pharmacy Consult ? Medication Reconciliation Pharmacy has completed the medication reconciliation.
[2023-12-15 07:15] LABS: Alanine Aminotransferase 12 U/L (0-40); Albumin Level 3.9 g/dL (3.5-5.0); Alkaline Phosphatase 68 U/L (39-117); Anion Gap 10 (12-20); Aspartate Amino Transferase 17 U/L (5-37); Bilirubin Total 1.1 mg/dL (0.0-1.0); Blood Urea Nitrogen 22 mg/dL (9-16); Calcium 9.4 mg/dL (8.4-10.2); Carbon Dioxide 28 mmol/L (22-29); Chloride 107 mmol/L (96-108); Creatinine Clr Calc Pharmacy 85.2; Estimated Glomerular Filt Rate > 60; Glucose Random 101 mg/dL (60-115); Potassium 4.1 mmol/L (3.3-5.1); Sodium 141 mmol/L (135-145); Total Protein 6.6 g/dL (6.5-8.0)
[2023-12-15 07:24] VITALS: BP 117/58; PULSE 68; RESP 20; TEMP 36.9; O2SAT 94
--- NOTE | 2023-12-15 08:35 | MHC.CM.PN ---
CM met with Patient at bedside and addressed IMM with him, providing Patient with the original and a copy has been placed on the chart. Patient lives in a house with his Partner/Amelia, who is receiving Hospice Care. Home self care vs Care Team intervention, r/t accidental Heroin OD is the tentative plan and CM has initiated and will follow for dc planning. PCP is Dr. Tristin Riley.
[2023-12-15] MEDS: 0.9 % Sodium Chloride Flush 3 ML SYRINGE IVFLUSH (10:22)
[2023-12-15] MEDS: Apixaban 5 MG TABLET 10 MG PO (10:24)
[2023-12-15 11:21] VITALS: BP 122/60; PULSE 66; RESP 20; TEMP 37.2; O2SAT 94
--- NOTE | 2023-12-15 12:27 | PM.DS ---
DS: Providers Provider Date of Service: 12/15/23 Date of admission: 12/14/23 09:02 Date of discharge: 12/15/23 Primary care physician: Tristin Riley MD DS: Diagnosis Discharge Diagnosis (1) Accidental drug overdose: Status: Acute (2) Acute non-cardiogenic pulmonary edema: Status: Acute DS: Summary Hospital Course Hospital Course: 68 year old current smoker who endorses no chronic medical history and presented to the ED late evening 12/12 after an accidental heroin overdose. The patient states that his significant other is currently under hospice services for terminal cancer. He states that her father has travelled from [place] to help. On the evening prior to admission, the patient reproted that he smoked heroin with the intention of shotgunning it to his partner (describes it as him inhaling the smoke and exhaling it onto/near his partner). He reports the next thing he recalls is being moved on to the stretcher by the paramedics. He denies being an opiate user. Per the ED provider notes: he patient is an ordinarily healthy 68-year-old who says that he was helping his partner, who has cancer, control her pain by lighting up a heroin pipe tonight. He apparently that up the heroin pipe and inhaled a few times and then does not remember what happened next. Apparently he passed out and fell and hit the floor. Apparently the patient was unresponsive. 911 was called. Paramedics administered 12 mg of naloxone and ventilated the patient with a bag-valve mask. I believe he also received some chest compressions. He woke up after the naloxone. The patient is seen an examined in the ED around 840AM. He currently reports feeling much better. States he has some chest soreness, but denies anginal type chest pain. Denies sob or cough. In the ED, his work up revealed UDS positive for fentanyl, opiates and cocaine. His HS trop I h increased from 19 to 49 to 76. His bnp wnl. His imaging studies show 2 small subsegmental PE and mild pulmonary edema. He has been given lovenox 1mg/kg and remains hypoxic below 88-90% and hence will be admitted for further care. Hospital Course Admitted to telemetry overnight where monitor failed to demonstrate any acute dysrhythmias. He remained stable on room air without acute issues. At this point in time he is medically acceptable for discharge home. He will start Eliquis 10 mg twice daily for 1 week and then Eliquis 5 mg twice daily until seen by PCP. He has been instructed to avoid all illicit drugs Time Attestation Discharge Coordination Time (in mins): 35 Quality: Safe Use of Opioids Does Pt have an Active Cancer Diagnosis on the Problem List?: No Quality: Stroke Does the patient have a stroke diagnosis?: No Physical Exam Vital Signs: Vital Signs: Last Vital Signs Temp 98.9 F 12/15/23 11:21 Pulse 66 12/15/23 11:21 Resp 20 12/15/23 11:21 BP 122/60 12/15/23 11:21 Pulse Ox 94 12/15/23 11:21 O2 Del Method Room Air 12/15/23 11:21 O2 Flow Rate 2 12/14/23 18:19 BMI result Body Mass Index 21.8 Const: Other: Awake alert no acute distress Resp: Other: Clear to auscultation bilaterally no rales rhonchi or wheezes Cardio: Other: No S4; positive S1-S2; no S3 murmurs rubs or gallops GI: Other: Soft nontender nondistended normoactive bowel sounds Extrem: Other: No edema bilaterally DS: Data Data Completed and Pending Labs on day of discharge: Laboratory Results - last 24 hr 12/15/23 06:43 WBC 9.8 RBC 4.23 L Hgb 13.9 L Hct 41.1 L MCV 97.2 MCH 32.9 MCHC 33.8 RDW 12.8 Plt Count 211 MPV 9.4 Absolute Nucleated RBC 0.000 Nucleated RBC % (auto) 0.0 Sodium 141 Potassium 4.1 Chloride 107 Carbon Dioxide 28 Anion Gap 10 L BUN 22 H Creatinine 0.82 Estim Creat Clear Calc 85.2 Estimated GFR > 60 Random Glucose 101 Calcium 9.4 Total Bilirubin 1.1 H AST 17 ALT 12 Alkaline Phosphatase 68 Total Protein 6.6 Albumin 3.9 Discharge Plan Discharge Anticipated Discharge Date/Time: 12/15/23 12:24 Patient Disposition: Home, Self-Care Discharge Diagnosis: Accidental drug overdose Referrals: Name,MD Tristin [Primary Care Provider] - 1 Week Discharge Medications: New Eliquis 5 mg Tablet 10 mg PO BID Qty: 56 0RF Discharge Orders: Discharge Order (Routine); Ordered 12/15/23 Ordered By: Deondre Moyer Diet: Advance to usual diet Activity on Discharge: As tolerated Stand Alone Forms: Patient Portal Discharge page Print Language: Guatemalan Care Plan Goals: Take Eliquis 2 tabs twice a day for 1 week then 1 tab twice a day. Follow-up with your PCP next available Health Concerns: No further illicit drugs Plan of Treatment: Follow up with PCP next available appointment Assessment: See discharge summary
--- NOTE | 2023-12-15 12:30 | MHC.CM.PN ---
Patient has been medically cleared for dc to home today, self care.
== END 2023-12-15 14:45 | disposition home or self-care (01) | DRG 917 ==
LOC: HO.ED 12-14 03:21 → HO.EDOVER 12-14 09:26 → HO.IMC 12-14 17:03 → HO.EDOVER 12-14 17:38 → HO.IMC 12-15 01:04
PROVIDERS: Admitting Provider Family Medicine; Emergency Provider Emergency Medicine; PCP Internal Medicine Geriatric Medicine; Visit Provider Hospitalist
DX: T40.1X1A Poisoning by heroin, accidental (unintentional), initial encounter (principal); I26.94 Multiple subsegmental thrombotic pulmonary emboli without acute cor pulmonale; J96.01 Acute respiratory failure with hypoxia; I24.89 Other forms of acute ischemic heart disease
CPT/HCPCS: 36415; 70450; 71045; 71275; 80048; 80053; 80076; 80307; 81001; 82803; 83690; 83735; 83880; 84484; 85025; 85027; 85379; 85610; 93005; 99285; J1650; Q9967

== ENCOUNTER → 2023-12-13 20:33 | Outpatient (BNV) | payer MEDICARE, SELFPAY | PROVIDERS: Admitting Provider Family Medicine; Emergency Provider Emergency Medicine; PCP Internal Medicine Geriatric Medicine; Visit Provider Internal Medicine | DX: R07.9 Chest pain, unspecified (principal); R79.89 Other specified abnormal findings of blood chemistry | CPT/HCPCS: 93010 ==

== ENCOUNTER → 2023-12-13 21:48 | Outpatient (BNV) | payer MEDICARE, SELFPAY | PROVIDERS: Emergency Provider Emergency Medicine; PCP Internal Medicine Geriatric Medicine; Visit Provider Family Medicine | DX: J96.01 Acute respiratory failure with hypoxia (principal); T50.901A Poisoning by unspecified drugs, medicaments and biological substances, accidental (unintentional), initial encounter; J81.0 Acute pulmonary edema | CPT/HCPCS: 99223; 99239 ==

== ENCOUNTER 2024-01-28 15:22 | Outpatient (AMB) | payer MEDICARE, SELFPAY ==
--- NOTE | 2024-01-28 15:54 | A.OFFVISCC_ITS ---
Vital Signs 01/28/24 16:29 BP 130/60 Blood Pressure Location Lt brachial Respiration 18 Pulse 100 Pulse Source Pulse Oximeter Pulse Oximetry (%) 98 Oxygen Delivery Method Room Air Intake Visit Reasons: Intake Allergies No Known Allergies Allergy (Unverified 12/13/23 20:06) HPI HPI Intake: Details: Patient presents to establish care with [facility] post accidental overdose in November States he has been in remission since 2019 Only used because he was attempting to shotgun heroin after smoking it to try and manage pain for pt with heroin Denies daily use, states he has not used any opiates since Reports occasional cocaine use due to peer pressure Has been experiencing grief as a result of the passing of his significant other in November He is unsure what treatment he would like at this time Has follow up with PCP in a few weeks [facility] Medical History (Updated 01/29/24 @ 14:19 by Amelia Givens NP) Accidental drug overdose Acute non-cardiogenic pulmonary edema Surgical History History of appendectomy Social History Household Members: Other Housing: House Do you presently have visiting nurse or other home services: No Patient Tobacco Use Status: Current everyday Tobacco user Cigarettes Per Day: 10 Substance Use Type: Heroin service: No Review of Systems Const Reports as per HPI Physical Exam Vital Signs: Last Vital Signs Pulse 100 01/28/24 16:29 Resp 18 01/28/24 16:29 BP 130/60 01/28/24 16:29 Pulse Ox 98 01/28/24 16:29 Oxygen Delivery Method Room Air 01/28/24 16:29 Const General: cooperative and no acute distress Nutritional Appearance: thin Resp Effort & Inspection: normal respiratory effort and able to speak in complete sentences Psych Appearance: grossly normal Mental Status: mental status grossly normal Speech and movement: Normal speech and movement present Affect: normal affect Attitude: cooperative Thought process: Normal thought process present Quality Reporting (2019) Depression/Bipolar (159/160/161/177) PHQ-9: Total score: 4 Assessment & Plan Assessment & Plan (1) Opioid use disorder in remission: Code(s): F11.91 - Opioid use, unspecified, in remission Category: Medical Plan: -Pt educated about MOUD, does not feel as though he needs at this time -Harm reduction discussion -Follow up 1 week Orders: Referrals Counseling Referral Z71.89 - Other specified counseling MAT Intake Nursing Intake Reason for visit: looking for help Are you currently using?: Yes What are you taking?: Heroine When was your last use?: last month How much?: 10 bags What is your source of income?: Retired What is your current relationship status?: (his girlfriend one month ago) Current PCP: Dr River [facility] Date of last visit: 8 months ago, next visit in one month Referral Source: His daughter brought him in as a self refferal from community Substance Abuse History Substance Abuse History (includes route, frequency and quantity): Heroin, Methadone, Oxycodone product, Cocaine, Alcohol, Amphetamines, Marijuana and Tobacco (Daily) Social History Children: 1 living 1 Do you have a support system?: Yes daughter Current mode of transportation?: Car Where are you currently residing?: in a house alone IV Drug Use Have you ever shared needles?: Yes Have you ever belonged to a needle exchange program?: Yes Do you buy needles at a pharmacy?: Yes Have you ever overdosed?: Yes Number of lifetime overdoses: 2 Have you ever been hospitalized for an overdose?: Yes Was Naloxone administered?: Yes Recovery History Have you had any periods of recovery?: Yes What is your longest time in recovery?: 16 months with methadone use, he states he is uninterested in MAT at this time When was the last time you were in recovery?: 2019 Have you ever had inpatient treatment for your substance abuse disorder?: No Have you been in an inpatient detoxification program?: Yes Have you been in an inpatient Rehab/[place] house?: Yes Have you been in an outpatient Methadone Maintenance program?: Yes Have you been in an outpatient Suboxone Maintenance program?: No Have you been in an AA/NA support program?: No Have you had a Recovery Support [employer] Furniture [employer]?: No Have you had Peer Support?: No Behavioral Health History Do you have a current provider? If so, who?: No History of self harming thoughts?: No History of homicidal or suicidal intentions?: No Medical Conditions Endocarditis?: No Skin Infection: No Head or brain injury: No Hepatitis A (if yes, have you been treated?): No Hepatitis B (if yes, have you been treated?): No Hepatitis C (if yes, have you been treated?): Yes ( Treated and cleared ) HIV (if yes, have you been treated?): No TB (if yes, have you been treated?): No Legal History History of incarceration: Yes Currently on parole or probation: No Court mandated programs: No Pending court cases: No DCF involvement: No PHQ-9 Over the last 2 weeks, how often have you been bothered by any of the following problems? 1. Little interest or pleasure in doing things: not at all 2. Feeling down, depressed, or hopeless: nearly every day 3. Trouble falling or staying asleep, or sleeping too much: not at all 4. Feeling tired or having little energy: not at all 5. Poor appetite or overeating: several days 6. Feeling bad about yourself - or that you are a failure or have let yourself or your family down: not at all 7. Trouble concentrating on things, such as reading the newspaper or watching television: not at all 8. Moving or speaking so slowly that other people could have noticed. Or the opposite - being so fidgety or restless that you have been moving around a lot more than usual: not at all 9. Thoughts that you would be better off or of hurting yourself in some way: not at all Total score: 4 Depression Screening Interpretation: Negative Depression Screening Done: Yes 91585 - PHQ-9 Billing: Yes Source: Developed by Drs. Scottie Yap, Effie Cramer, Moncho Hatch and colleagues, with an educational brianna from [employer].
[2024-01-28 16:29] VITALS: BP 130/60; PULSE 100; RESP 18; O2SAT 98
== END 2024-01-28 16:09 | disposition home or self-care (01) ==
PROVIDERS: PCP Internal Medicine Geriatric Medicine; Visit Provider Nurse Practitioner Family
DX: F11.91 Opioid use, unspecified, in remission (principal)
CPT/HCPCS: 99204; 99214

== ENCOUNTER → 2024-01-28 15:22 | Outpatient (BNVA) | payer MEDICARE, SELFPAY | PROVIDERS: PCP Internal Medicine Geriatric Medicine; Visit Provider Nurse Practitioner Family | DX: Z71.89 Other specified counseling (principal); F11.91 Opioid use, unspecified, in remission | CPT/HCPCS: 99202 ==

== ENCOUNTER 2024-02-04 13:29 | Outpatient (AMB) | payer MEDICARE, SELFPAY ==
--- NOTE | 2024-02-04 13:18 | MHC.AM.SUB ---
Vital Signs 02/04/24 13:38 BP 124/60 Blood Pressure Location Lt brachial Position Sitting Respiration 16 Pulse 76 Pulse Oximetry (%) 96 Oxygen Delivery Method Room Air Intake Visit Reasons: mat Allergies No Known Allergies Allergy (Unverified 12/13/23 20:06) HPI HPI mat: Details: Patient presents for OUD treatment and follow up He has still not used since overdose Reports he has been offered cocaine, crack and percocets in this past week and has turned down all three Feels as though his substance use days are behind him Getting his house ready to sell Reports he is lonely and looking for companionship HPI Comments Details: Patient presents for MAT visit [facility] Medical History (Updated 01/29/24 @ 14:19 by Amelia Givens NP) Accidental drug overdose Acute non-cardiogenic pulmonary edema Surgical History History of appendectomy Social History Household Members: Other Housing: House Do you presently have visiting nurse or other home services: No Patient Tobacco Use Status: Current everyday Tobacco user Cigarettes Per Day: 10 Substance Use Type: Heroin service: No Review of Systems Const Reports as per HPI Physical Exam Vital Signs: Last Vital Signs Pulse 76 02/04/24 13:38 Resp 16 02/04/24 13:38 BP 124/60 02/04/24 13:38 Pulse Ox 96 02/04/24 13:38 Oxygen Delivery Method Room Air 02/04/24 13:38 Const General: cooperative and no acute distress Resp Effort & Inspection: normal respiratory effort and able to speak in complete sentences Psych Appearance: grossly normal Mental Status: mental status grossly normal Speech and movement: Normal speech and movement present Affect: normal affect Attitude: cooperative Thought process: Normal thought process present Assessment & Plan Assessment & Plan (1) Opioid use disorder in remission: Code(s): F11.91 - Opioid use, unspecified, in remission Category: Medical Plan: -Continues to stay in remission -Follow up 3 weeks
[2024-02-04 13:38] VITALS: BP 124/60; PULSE 76; RESP 16; O2SAT 96
== END 2024-02-04 14:11 | disposition home or self-care (01) ==
PROVIDERS: PCP Internal Medicine Geriatric Medicine; Visit Provider Nurse Practitioner Family
DX: F11.91 Opioid use, unspecified, in remission (principal)
CPT/HCPCS: 99213

== ENCOUNTER → 2024-02-04 13:29 | Outpatient (BNVA) | payer MEDICARE, SELFPAY | PROVIDERS: PCP Internal Medicine Geriatric Medicine; Visit Provider Nurse Practitioner Family | DX: Z71.89 Other specified counseling (principal) | CPT/HCPCS: 99212 ==

== ENCOUNTER 2024-02-25 13:35 | Outpatient (AMB) | payer MEDICARE, SELFPAY ==
[2024-02-25 13:48] VITALS: BP 130/70; PULSE 89; RESP 20; O2SAT 98
--- NOTE | 2024-02-25 13:48 | MHC.AM.SUB ---
Vital Signs 02/25/24 13:48 BP 130/70 Blood Pressure Location Rt brachial Position Sitting Respiration 20 Pulse 89 Pulse Oximetry (%) 98 Oxygen Delivery Method Room Air Intake Visit Reasons: mat Allergies No Known Allergies Allergy (Unverified 12/13/23 20:06) HPI HPI mat: Details: Patient presents for follow up No JORDYN --recently admitted overnight following accidental overdose Some processing around goals for entering treatment at [facility] Reporting he does not actually know why he comes here because he has been substance free since 2018--aside from the overdose in late November He said he was unsure why his kids thought he still had a drug issue. This automatic typewriter inspector gently challenged this statement by reminding him of overdose that occurred recently. Patient acknowledged this as well as his own avoidance in discussing what occurred that evening with his children. He denies any substance use and denies any thoughts of using. Has been reading quite a bit. will be going to [place] to visit his son. [facility] Medical History (Updated 01/29/24 @ 14:19 by Amelia Givens NP) Accidental drug overdose Acute non-cardiogenic pulmonary edema Surgical History History of appendectomy Social History Household Members: Other Housing: House Do you presently have visiting nurse or other home services: No Patient Tobacco Use Status: Current everyday Tobacco user Cigarettes Per Day: 10 Substance Use Type: Heroin service: No Review of Systems Const Reports as per HPI and Reports no additional complaints Physical Exam Vital Signs: Last Vital Signs Pulse 89 02/25/24 13:48 Resp 20 02/25/24 13:48 BP 130/70 02/25/24 13:48 Pulse Ox 98 02/25/24 13:48 Oxygen Delivery Method Room Air 02/25/24 13:48 Const General: cooperative, healthy appearing and no acute distress Nutritional Appearance: thin Orientation/consciousness: patient oriented x3 Limitations: no limitations Neuro General: patient oriented x3 Psych Appearance: grossly normal and well kempt Speech and movement: Normal speech and movement present Affect: normal affect Attitude: cooperative Thought process: Normal thought process present and Circumstantial thought process present Thought content: Normal thought content present Insight: Fair insight present (Psych) Judgement: Fair judgement present (Psych) Assessment & Plan Assessment & Plan (1) Opioid use disorder in remission: Code(s): F11.91 - Opioid use, unspecified, in remission Category: Medical Plan: no intervention at this time patient to call for follow up PRN
== END 2024-02-25 14:27 | disposition home or self-care (01) ==
PROVIDERS: PCP Internal Medicine Geriatric Medicine; Visit Provider Nurse Practitioner Psychiatric/Mental Health
DX: F11.91 Opioid use, unspecified, in remission (principal)
CPT/HCPCS: 99213

== ENCOUNTER → 2024-02-25 13:35 | Outpatient (BNVA) | payer MEDICARE, SELFPAY | PROVIDERS: PCP Internal Medicine Geriatric Medicine; Visit Provider Nurse Practitioner Psychiatric/Mental Health | DX: F11.20 Opioid dependence, uncomplicated (principal) | CPT/HCPCS: 99212 ==

== ENCOUNTER 2024-03-04 04:24 | Emergency (ER) | payer MEDICARE, SELFPAY ==
[2024-03-04 04:40] VITALS: BP 135/71; PULSE 71; RESP 16; TEMP 37; O2SAT 98; BMI 22.0
== END 2024-03-04 06:38 | disposition left against medical advice (07) ==
PROVIDERS: Emergency Provider Emergency Medicine; PCP Internal Medicine Geriatric Medicine
DX: M54.50 Low back pain, unspecified (principal); Z53.21 Procedure and treatment not carried out due to patient leaving prior to being seen by health care provider
CPT/HCPCS: 99281

== ENCOUNTER 2024-03-04 19:05 | Emergency (ER) | payer MEDICARE, SELFPAY ==
--- NOTE | ~2024-03-04 | XR_ITS ---
EXAMINATION: XR LUMBOSACRAL SPINE CLINICAL INFORMATION: Low back pain COMPARISON: None available. TECHNIQUE: Three views of the lumbosacral spine. FINDINGS: There is normal lumbar lordosis. The vertebral heights and alignment is normal. There is loss of L5-S1 disc height with mild ventral spondylosis. Rest of the disc heights are normal. There is mild spondylosis L3-L4, L4-L5, L5-1 disc levels. There is moderate gas in the left colon without distention. No organomegaly. The SI joints are symmetrical and normal. XR/XR lumbar spine 2-3V IMPRESSION: No acute fracture or dislocation. Mild spondylosis.
[2024-03-04 19:16] VITALS: BP 128/70; PULSE 71; RESP 18; TEMP 36.8; O2SAT 97; BMI 22.0
--- NOTE | 2024-03-04 19:17 | ED.GENADULT ---
HPI - General Adult General Stated complaint: back inj Related Data Previous Rx's ?Medication ?Instructions ?Recorded apixaban 5 mg tablet (Eliquis) 10 mg (2 x 5 mg) PO BID #56 tabs 12/15/23 Allergies Allergy/AdvReac Type Severity Reaction Status Date / Time No Known Allergies Allergy Verified 03/04/24 19:20 [facility] Past Medical History Medical History (Updated 01/29/24 @ 14:19 by Amelia Givens NP) Accidental drug overdose Acute non-cardiogenic pulmonary edema Surgical History History of appendectomy Social History Social History Household Members: Other Housing: House Do you presently have visiting nurse or other home services: No Patient Tobacco Use Status: Current everyday Tobacco user Cigarettes Per Day: 10 Substance Use Type: Heroin service: No Course Course Course Narrative: RME, this is a rapid medical exam performed by Jason Harden please refer to primary provider for complete H&P- 68-year-old male who denies any history of back pain presents for evaluation lower back pain that started 3 days ago. He reports that he [place] and strained his back. Denies any numbness, tingling in his pain is worse with bending over. Plan for x-ray Discharge Plan Discharge Prescriptions: No Action Eliquis 5 mg Tablet 10 mg PO BID Qty: 56 0RF Print Language: Vincentian
== END 2024-03-04 22:41 | disposition left against medical advice (07) ==
PROVIDERS: Emergency Provider Emergency Medicine; PCP Internal Medicine Geriatric Medicine
DX: M54.50 Low back pain, unspecified (principal); Z91.81 History of falling; Z53.21 Procedure and treatment not carried out due to patient leaving prior to being seen by health care provider
CPT/HCPCS: 72100; 99281

== ENCOUNTER 2024-04-11 08:00 | Outpatient (RCR) | payer MEDICARE, SELFPAY ==
[2024-04-07 08:44] VITALS: BP 132/60
--- NOTE | 2024-04-22 10:28 | MHC.PT.DC ---
[facility] [place] Office [place] [facility] [place] Office [address] Daniel Toney [address] [phone] F: [phone] F: [phone] F: [phone] F: [phone] Physical Therapy Discharge Report Diagnosis: LBP w/o sciatica Date of Surgery: Date of Evaluation: 04/07/24 Date of Discharge: 04/22/24 Treatments to Date: 2 Cancellations to Date: No Shows to Date: 3 Discharge Status: Patient Elected to Stop Visit Non-compliance Discharge Summary: Delvin has been an inconsistent participant in his therapy with inconsistent home program compliance. He is being discharged today after 3 no shows per attendance policy. Electronically signed by: Diego Ramos PT. Please sign and return to therapist. Thank you for your referral.
== END 2024-04-22 10:34 | disposition home or self-care (01) ==
LOC: HO.PT 08:00
PROVIDERS: PCP Internal Medicine Geriatric Medicine; Visit Provider Nurse Practitioner Family
DX: M54.50 Low back pain, unspecified (principal)
CPT/HCPCS: 97110; 97161